=== PATIENT | female | born 1990 | race Caucasian/White ===

== ENCOUNTER 2017-12-03 16:08 | Outpatient (CLI) | END 2017-12-03 16:09 | disposition home or self-care (01) | LOC: LAB 16:08 | PROVIDERS: ATTEND Nurse Practitioner Family | DX: R50.9 Fever, unspecified (principal) | CPT/HCPCS: 87502; 87651 ==

== ENCOUNTER 2018-01-22 19:47 | Emergency (ER) ==
[2018-01-22 19:59] VITALS: BP 135/93; TEMP 99.9; BMI 25.9
--- NOTE | 2018-01-22 20:59 | ED.PDOC ---
General ED Provider: Dr. JOCELYN MELENDEZ Chief Complaint: Fever Stated Complaint: Patient had delivery 2 weeks ago, Vaginal delivery, Had 1 degree cut to Lab[place], had suture,. now she is having burning and frequency of utination, no abdominal pain,nausea or vomiting. Time Seen by Physician: 20:57 Mode of Arrival: Walk-In Information Source: Patient Primary Care Provider: SANDY WHYTE Nursing and Triage Documentation Reviewed and Agree: Yes Reviewed sepsis parameters & appropriate labs ordered?: No System Inflammatory Response Syndrome: Not Applicable Sepsis Protocol: For patient's 13 years and over: Temp is 96.8 and below OR 101 and greater Pulse >90 BPM Resp >20/minute Acutely Altered Mental Status Are patient's symptoms suggestive of a new infection, such as: -Pneumonia -Skin, Soft Tissue -Endocarditis -UTI -Bone, Joint Infection -Implantable Device -Acute Abdominal Infection -Wound Infection -Meningitis -Blood Stream Catheter Infection -Unknown Complaint Exam - UTI Female Complaint/Exam Patient Complains of: Reports: Painful urination Symptoms Are: Still present Timing: Constant Initial Severity: Moderate Current Severity: Moderate Associated Signs and Symptoms: Reports: Fever, Dyspareunia. Denies: Chills, Flank pain, Vaginal discharge Related Surgical History: Reports: None CVA Tenderness: No Suprapubic Tenderness: No Vulva Exam: Present: Labial lesions, Labial erythema (PER J[facility]ON ) Differential Diagnoses: Cystitis Review of Systems - Review Of Systems Constitutional: Reports: Fever Eyes: Reports: No symptoms Ears, Nose, Mouth, Throat: Reports: No symptoms Respiratory: Reports: No symptoms Cardiac: Reports: No symptoms GI: Reports: No symptoms : Reports: Burning, Dysuria, Frequency Musculoskeletal: Reports: No symptoms Skin: Reports: No symptoms Neurological: Reports: No symptoms Endocrine: Reports: No symptoms Hematologic/Lymphatic: Reports: No symptoms All Other Systems: Reviewed and Negative Past Medical History - Past Medical History Previously Healthy: Yes Endocrine: Reports: None Cardiovascular: Reports: None Respiratory: Reports: None Hematological: Reports: None Gastrointestinal: Reports: None Genitourinary: Reports: None Neuro/Psych: Reports: None Musculoskeletal: Reports: None Cancer: Reports: None Last Menstrual Period: POST 6 DAYS - Surgical History General Surgical History: Reports: None - Family History Family History: Reports: None - Social History Smoking Status: Never smoker Hx Substance Use: No Alcohol Screening: None - Immunizations Tetanus Shot up to Date: Yes Physical Exam - Physical Exam Appearance: Well-appearing, No pain distress, Well-nourished Eyes: HAL, EOMI, Conjunctiva clear ENT: Ears normal, Nose normal, Oropharynx normal Respiratory: Airway patent, Breath sounds clear, Breath sounds equal, Respirations nonlabored Cardiovascular: RRR, Pulses normal, No rub, No murmur GI/: Soft, Nontender, No masses, Bowel sounds normal, No Organomegaly Musculoskeletal: Normal strength, ROM intact, No edema, No calf tenderness Skin: Warm, Dry, Normal color Neurological: Sensation intact, Motor intact, Reflexes intact, Cranial nerves intact, Alert, Oriented Psychiatric: Affect appropriate, Mood appropriate Critical Care Note - Critical Care Note Total Time (mins): 30 Course - Course Orders, Labs, Meds: Lab Review 01/22/18 20:30 Urine Color Yellow Urine Clarity Cloudy Urine pH 7.0 Ur Specific [place] 1.020 Urine Protein 1+ Urine Glucose (UA) Negative Urine Ketones Negative Urine Blood 2+ Urine Nitrite Negative Urine Bilirubin Negative Urine Urobilinogen 4.0 Ur Leukocyte Esterase 2+ Urine Microscopic RBC 5-10 Urine Microscopic WBC 10-20 Ur Squamous Epith Cells 0-2 Urine Bacteria Trace Orders Category Date Time Status UA [URINALYSIS C & S IF INDICATED] Stat LAB 01/22/18 20:30 Completed URINE CULTURE Stat LAB 01/22/18 20:58 Received Ceftriaxone Sodium [Rocephin] MEDS 01/22/18 21:05 Stat 1 gm IM ONCE STA Lidocaine HCl/Pf [Lidocaine HCl 1% Sdv] MEDS 01/22/18 21:05 Stat 2.1 ml IM ONCE STA Vital Signs: Temp Pulse Resp BP Pulse Ox 01/22/18 19:48 99.9 F H 98 H 18 135/93 H 98 Departure - Departure Time of Disposition: 21:06 Disposition: HOME SELF-CARE Discharge Problem: UTI (urinary tract infection) Qualifiers: Urinary tract infection type: acute cystitis Hematuria presence: with hematuria Qualified Code(s): N30.01 - Acute cystitis with hematuria Instructions: Urinary Tract Infection in Women (ED) Condition: Stable Pt referred to PMD for follow-up: Yes IPMP verified?: No Additional Instructions: INCREASE HYDRATION PROBIOTICS TAKE MEDICATION WITH FOOD Prescriptions: Sulfamethoxazole/Trimethoprim [Bactrim Ds 800/160 mg] 1 tab PO Q12HR #20 tablet Allergies/Adverse Reactions: Allergies No Known Allergies Allergy (Verified 01/22/18 19:59) Home Medications: Ambulatory Orders Vit37/Iron/Folic Acid [[place] Chewable Tablet] 1 each PO DAILY Cetirizine HCl [Zyrtec] 10 mg PO DAILY PRN 01/22/18 Oxycodone-Acetaminophen 5-325 [Percocet 5-325] 1 tab PO Q4H PRN 01/22/18 Sulfamethoxazole/Trimethoprim [Bactrim Ds 800/160 mg] 1 tab PO Q12HR #20 tablet 01/22/18 Disposition Discussed With: Patient, Family
[2018-01-22] MEDS ORDERED: LIDOCAINE HCL 1% SDV IM STA (21:05)
[2018-01-22] MEDS ORDERED: ROCEPHIN IM STA (21:05)
== END 2018-01-22 21:46 | disposition home or self-care (01) ==
LOC: ED 19:47
DX: N30.01 Acute cystitis with hematuria (principal); Z98.890 Other specified postprocedural states
CPT/HCPCS: 81001; 87086; 96372; 99283

== ENCOUNTER 2018-12-23 10:47 | Outpatient (CLI) | END 2018-12-23 10:48 | disposition home or self-care (01) | LOC: RHC-LAB 10:47 → FCC-LAB 10:48 | PROVIDERS: ATTEND Nurse Practitioner Family | DX: R05 Cough (principal) | CPT/HCPCS: 87502 ==